=== PATIENT | male | born 1945 | race Caucasian/White ===

== ENCOUNTER 2022-11-19 08:38 | Day surgery (SDC) | payer OTHER ==
[~2022-11-19] VITALS: Ht 182.9 cm; Wt 86.3 kg
[~2022-11-19 08:38] MED LIST: ALBU90OI INH; AMLO10 PO; ATEN100 PO; BUPR150T2 PO; COLE5P PO; FLUT.05NI; HYDCHL25 PO; LORA.5 PO; LOSA50 PO; MORP15ER PO; PANT40 PO; TAMS.4ER PO; Zithromax250 MG PO
[2022-11-19] MEDS ORDERED: ASPI81CH PO (09:03)
--- NOTE | 2022-11-19 09:30 | NUR ---
Ambulatory in Day Surgery History, Chart, Medications and Allergies reviewed before start of procedure. Pre-Op teaching done. Pt verbalizes understanding. Patient States Post-Procedure ride home has been arranged.
--- NOTE | 2022-11-19 09:35 | NUR ---
SUTAB PREP COMPLETE PER PATIENT. DRANK BLACK COFFEE AT 6AM.
--- NOTE | 2022-11-19 09:50 | NUR ---
11/19/22 0950 Anahy Horowitz MONITOR INTACT WITH CONTINUOUS PULSE OXIMETRY AND INTERMITTENT BP.
--- NOTE | 2022-11-19 11:37 | NUR ---
PT VSS, NO C/O NAUSEA OR PAIN. PT MEETS DISCHRGE CRITERIA. Discharge instructions reviewed with patient. Patient verbalizes understanding. Copy given to patient to take home. Discharged via wheelchair to private car for ride home.
== END 2022-11-19 11:40 | disposition home or self-care (01) ==
LOC: ORSCMMR 08:38 → ORD 09:45 → ORSCSDS 09:45 → ORSCMMR 11:40
PROVIDERS: Surgery
PROC: 0DBN8ZX Excision of Sigmoid Colon, Via Natural or Artificial Opening Endoscopic, Diagnostic (ICD-10-PCS; principal; 2022-11-19 09:45)
PROC: 0DBK8ZX Excision of Ascending Colon, Via Natural or Artificial Opening Endoscopic, Diagnostic (ICD-10-PCS; principal; 2022-11-19 09:45)
DX: R94.8 Abnormal results of function studies of other organs and systems (principal); Z86.010 Personal history of colon polyps; Z85.118 Personal history of other malignant neoplasm of bronchus and lung; D12.2 Benign neoplasm of ascending colon; D12.5 Benign neoplasm of sigmoid colon; F41.9 Anxiety disorder, unspecified; I10 Essential (primary) hypertension; F17.210 Nicotine dependence, cigarettes, uncomplicated; E78.5 Hyperlipidemia, unspecified; J44.9 Chronic obstructive pulmonary disease, unspecified; Z79.899 Other long term (current) drug therapy
CPT/HCPCS: 88305; J2704; J7120

== ENCOUNTER 2024-09-04 20:09 | Emergency (ER) | payer OTHER ==
[~2024-09-04] VITALS: Ht 190.5 cm; Wt 70.3 kg
[~2024-09-04 20:09] MED LIST changes: +ASPI81CH PO
[2024-09-04 20:45] VITALS: BP 133/100
== END 2024-09-04 23:41 | disposition home or self-care (01) ==
LOC: ER 20:09
DX: R22.42 Localized swelling, mass and lump, left lower limb (principal); I10 Essential (primary) hypertension; K21.9 Gastro-esophageal reflux disease without esophagitis; E78.5 Hyperlipidemia, unspecified; F17.200 Nicotine dependence, unspecified, uncomplicated; Z88.0 Allergy status to penicillin; Z88.8 Allergy status to other drugs, medicaments and biological substances; Z79.899 Other long term (current) drug therapy; Z79.82 Long term (current) use of aspirin
CPT/HCPCS: 93971; 99283-25